=== PATIENT | male | born 1995 | race Caucasian/White ===

== ENCOUNTER 2018-01-17 20:55 | Emergency (ER) | payer SELFPAY ==
[~2018-01-17] VITALS: Ht 172.7 cm; Wt 86.3 kg
[~2018-01-17 20:55] MED LIST: AMOXICILLIN500 MG OR; AMOXICILLIN500 MG PO; BACTRIM DS1 TAB PO; DEPAKOTE ER500 MG PO; PRILOSEC20 MG PO; ROBITUSSIN AC10 ML OR
[2018-01-17 21:22] LABS: IMMATURE GRANULOCYTES 0.3 % (0.0-5.0); MEAN CELL VOLUME 87.3 fL CALC (80.0-100.0); MEAN CORPUSCULAR HGB 30.9 pG CALC (26.0-32.0); MEAN CORPUSCULAR HGB CONC 35.4 g/L CALC (32.0-36.0); NEUT# 10.2 thou/uL (1.82-7.42); RED BLOOD COUNT 5.11 mill/uL (4.70-6.10); RED CELL DISTRI WIDTH 12.6 % (11.5-15.5)
[2018-01-17 21:27] LABS: GFR > 60 ML/MIN (>=60 (CALC)); GFR FOR AFR.AMER. > 60 ML/MIN (>=60 (CALC))
[2018-01-17 21:28] LABS: ALBUMIN 4.8 g/dL (3.2-5.0); ALKALINE PHOSPHATASE 86 u/l (38-126); BILIRUBIN, TOTAL 0.5 mg/dL (0.0-1.4); BUN 8 mg/dL (9-20); BUN/CREATININE RATIO 10 (12-20 (CALC)); CARBON DIOXIDE 20 mmol/l (22-30); CREATININE 0.8 mg/dL (0.7-1.3); GFR > 60 ML/MIN (>=60 (CALC)); GFR FOR AFR.AMER. > 60 ML/MIN (>=60 (CALC)); POTASSIUM 3.7 mmol/l (3.5-5.1); SGOT/AST 20 u/l (17-59); SGPT/ALT 28 u/l (21-72); SODIUM 145 mmol/l (137-146); TOTAL PROTEIN 7.8 g/dL (6.3-8.2)
[2018-01-17 21:40] VITALS: BP 133/79
[2018-01-17 21:42] LABS: ANION GAP 18 (6-22 (CALC)); CHLORIDE 111 mmol/l (95-108); ETHYL ALCOHOL 0 mg/dl (0-30)
[2018-01-17 21:44] LABS: HEMATOCRIT 44.6 % (39.0-50.0); HEMOGLOBIN 15.8 g/dl (14.0-18.0)
[2018-01-17 21:50] LABS: INTERNATIONAL NORMALIZED RATIO 1.1 RATIO (0.7-1.3)
== END 2018-01-17 22:00 | disposition short-term general hospital (02) | DRG 948 ==
LOC: ED 20:55
PROVIDERS: Family Medicine
DX: R41.82 Altered mental status, unspecified (principal); R51 Headache; R20.0 Anesthesia of skin; R53.1 Weakness; H53.8 Other visual disturbances
CPT/HCPCS: J2060

== ENCOUNTER 2018-01-23 15:24 | Emergency (ER) | payer SELFPAY ==
[~2018-01-23] VITALS: Ht 172.7 cm; Wt 82.0 kg
[2018-01-23 16:18] LABS: HEMATOCRIT 39.4 % (39.0-50.0); IMMATURE GRANULOCYTES 0.3 % (0.0-5.0); MEAN CELL VOLUME 89.7 fL CALC (80.0-100.0); MEAN CORPUSCULAR HGB 31.2 pG CALC (26.0-32.0); MEAN CORPUSCULAR HGB CONC 34.8 g/L CALC (32.0-36.0); NEUT# 4.71 thou/uL (1.82-7.42); RED BLOOD COUNT 4.39 mill/uL (4.70-6.10)
[2018-01-23 16:20] LABS: HEMOGLOBIN 13.7 g/dl (14.0-18.0)
[2018-01-23 16:32] LABS: ALBUMIN 4.2 g/dL (3.2-5.0); ALKALINE PHOSPHATASE 71 u/l (38-126); ANION GAP 17 (6-22 (CALC)); BILIRUBIN, TOTAL 0.3 mg/dL (0.0-1.4); BUN 6 mg/dL (9-20); BUN/CREATININE RATIO 8 (12-20 (CALC)); CARBON DIOXIDE 22 mmol/l (22-30); CHLORIDE 109 mmol/l (95-108); CREATININE 0.8 mg/dL (0.7-1.3); GFR > 60 ML/MIN (>=60 (CALC)); GFR FOR AFR.AMER. > 60 ML/MIN (>=60 (CALC)); POTASSIUM 3.6 mmol/l (3.5-5.1); SGOT/AST 21 u/l (17-59); SGPT/ALT 30 u/l (21-72); SODIUM 144 mmol/l (137-146); TOTAL PROTEIN 6.8 g/dL (6.3-8.2)
[2018-01-23 16:44] LABS: MYOGLOBIN 12 ng/mL (0 - 121)
[2018-01-23] MEDS ORDERED: NAPROSYN500 MG PO (17:01)
[2018-01-23 17:28] VITALS: BP 155/76
== END 2018-01-23 17:27 | disposition home or self-care (01) | DRG 313 ==
LOC: ED 15:24
PROVIDERS: Emergency Medicine
DX: R07.89 Other chest pain (principal); F41.9 Anxiety disorder, unspecified; F17.210 Nicotine dependence, cigarettes, uncomplicated